=== PATIENT | female | born 1985 | race Caucasian/White ===

== ENCOUNTER 2019-03-30 17:34 | Emergency (ER) | payer OTHER ==
[2019-03-30 17:52] VITALS: BP 131/85
--- NOTE | 2019-03-30 17:59 | UC ---
Skin Complaint HPI - HPI Summary HPI Summary: awoke with an itchy area on left foot and right knee---patient is concerned as area started itchy but is now firm and painful, red, and hot to touch no streaking - History of Current Complaint Chief Complaint: UCSkin Time Seen by Provider: 03/30/19 17:45 Stated Complaint: RASH Hx Obtained From: Patient Hx Last Menstrual Period: iud in place ?: No Onset/Duration: Sudden Onset, Lasting Days - 1 Skin Exposure Onset/Duration: Hours Ago Timing: Constant Pain Intensity: 6 Pain Scale Used: 0-10 Numeric Location: Discrete Character: Swelling, Pain, Redness Aggravating Factor(s): Nothing Alleviating Factor(s): Nothing Associated Signs & Symptoms: Positive: Negative Related History: Insect Bite/Sting - possible - Allergy/Home Medications Allergies/Adverse Reactions: Allergies Allergy/AdvReac Type Severity Reaction Status Date / Time No Known Allergies Allergy Verified 03/30/19 17:49 Home Medications: Home Medications ALPRAZolam [Xanax] 1 tab PO DAILY PRN 03/30/19 [History Confirmed 03/30/19] Levonorgestrel (Iud) [Mirena IUD] 1 unit INTRAUTERI ONCE 03/30/19 [History Confirmed 03/30/19] Loratadine/Pseudoephedrine [Claritin-D 24 Hour Tablet] 1 tab PO ONCE PRN [History Confirmed 03/30/19] Sertraline HCl [Zoloft] 1 tab PO DAILY 03/30/19 [History Confirmed 03/30/19] PMH/Surg Hx/FS Hx/Imm Hx Previously Healthy: No Psychological History: Anxiety - Surgical History Surgical History: Yes Surgery Procedure, Year, and Place: - Social History Occupation: Employed Full-time Lives: With Family Alcohol Use: Occasionally Substance Use Type: None Smoking Status (MU): Light Every Day Tobacco Smoker Type: eCigaremari Review of Systems All Other Systems Reviewed And Are Negative: Yes Constitutional: Positive: Negative Skin: Positive: Other - 15 cm diameter erythema right knee and 10 cm erythema left foot Eyes: Positive: Negative ENT: Positive: Negative Respiratory: Positive: Negative Cardiovascular: Positive: Negative Gastrointestinal: Positive: Negative Genitourinary: Positive: Negative Motor: Positive: Negative Neurovascular: Positive: Negative Musculoskeletal: Positive: Negative Neurological: Positive: Negative Psychological: Positive: Negative Is Patient Immunocompromised?: No Physical Exam Triage Information Reviewed: Yes Appearance: Well-Appearing, No Pain Distress, Well-Nourished Vital Signs: Initial Vital Signs Temp 99.2 F 03/30/19 17:42 Pulse 95 03/30/19 17:42 Resp 18 03/30/19 17:42 BP 131/85 03/30/19 17:42 Pulse Ox 100 03/30/19 17:42 Vital Signs Reviewed: Yes Eye Exam: Normal Eyes: Positive: Conjunctiva Clear ENT Exam: Normal ENT: Positive: Normal ENT inspection, Hearing grossly normal. Negative: Trismus , Muffled voice, Hoarse voice Dental Exam: Normal Neck exam: Normal Neck: Positive: Supple, Nontender Respiratory Exam: Normal Respiratory: Positive: Chest non-tender, No respiratory distress, No accessory muscle use Cardiovascular Exam: Normal Cardiovascular: Positive: RRR, Pulses Normal, Brisk Capillary Refill Musculoskeletal Exam: Normal Musculoskeletal: Positive: Strength Intact, ROM Intact, No Edema Neurological Exam: Normal Neurological: Positive: Alert, Muscle Tone Normal Psychological Exam: Normal Skin: Positive: Other - 15 cm erthemic area right knee no streaking and 10 cm erythema left foot no streaking Course/Dx - Course Course Of Treatment: benadryl. keflex, cool compress for itch---observe for increasing erythema or streaking follow with pcp prn - Diagnoses Provider Diagnosis: Local reaction to insect sting, Cellulitis Discharge ED - Sign-Out/Discharge Documenting (check all that apply): Patient Departure All imaging exams completed and their final reports reviewed: No Studies - Discharge Plan Condition: Stable Disposition: HOME Prescriptions: Cephalexin CAP* [Keflex CAP*] 500 mg PO QID #19 cap Patient Education Materials: Diphenhydramine (By mouth), Cellulitis (ED), Insect Bite or Sting (ED), Ice Pack Application (ED) Referrals: Yanely Daugherty MD [Primary Care Provider] - If Needed - Billing Disposition and Condition Condition: STABLE Disposition: Home
[2019-03-30] MEDS ORDERED: Cephalexin CAP* 500 MG PO ONE (18:07)
== END 2019-03-30 18:23 | disposition home or self-care (01) ==
LOC: UCEAST 17:34
DX: T63.481A Toxic effect of venom of other arthropod, accidental (unintentional), initial encounter (principal); L03.115 Cellulitis of right lower limb; F17.290 Nicotine dependence, other tobacco product, uncomplicated; F41.9 Anxiety disorder, unspecified; Z79.899 Other long term (current) drug therapy; Y92.9 Unspecified place or not applicable
CPT/HCPCS: 99212; A9270-GY; G0463

== ENCOUNTER 2019-04-25 08:36 | Emergency (ER) | payer OTHER ==
--- NOTE | 2019-04-25 09:07 | ED ---
Influenza-Like Illness - HPI Summary HPI Summary: The patient is a 33 y/o F presenting to [facility] with a chief complaint of flu- like symptoms for the last week. . She notes nausea, vomiting, and diarrhea for the first five days of the episode which have since resolved. Over the last two days, she reports development of intermittent fever of 101F (last yesterday), chills, productive cough, sinus and chest congestion, and body aches. Symptoms currently rated 4/10 in severity. She denies any sore throat or abdominal pain. 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 She has not taken any decongestants. 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 No PMHx. Former smoker, occasional EtOH, no substance use. Medications reviewed. Allergies noted. - History of Current Complaint Chief Complaint: EDFluSymptoms Time Seen by Provider: 04/25/19 08:55 Hx Obtained From: Patient Onset/Duration: Lasting Days - one week, Still Present Severity: Moderate Associated Signs & Symptoms: Fever, Myalgia, Cough, Nasal Congestion, Vomiting - resolved, Diarrhea - resolved Related Hx: Possible Flu/Infectious Exposure - Allergy/Home Medications Allergies/Adverse Reactions: Allergies Allergy/AdvReac Type Severity Reaction Status Date / Time No Known Allergies Allergy Verified 04/25/19 08:43 Home Medications: Home Medications ALPRAZolam TAB* [Xanax TAB*] 0.5 mg PO BEDTIME PRN 04/25/19 [History Confirmed 04/25/19] Ibuprofen TAB* [Advil TAB*] 200 mg PO Q6H PRN 04/25/19 [History Confirmed ] guaiFENesin [Mucinex] 1,200 mg PO DAILY PRN 04/25/19 [History Confirmed 04/25/19 ] PMH/Surg Hx/FS Hx/Imm Hx Endocrine/Hematology History: Denies: Hx Diabetes Cardiovascular History: Denies: Hx Congestive Heart Failure, Hx Hypertension History: Denies: Hx Renal Disease - Surgical History Surgical History: Yes Surgery Procedure, Year, and Place: Infectious Disease History: No Infectious Disease History: Denies: Traveled Outside the [place] in Last 30 Days - Family History Known Family History: Negative: Renal Disease - Social History Alcohol Use: Occasionally Hx Substance Use: No Substance Use Type: Reports: None Hx Tobacco Use: Yes Smoking Status (MU): Former Smoker Type: [place] Review of Systems Positive: Fever - intermittent, 101F, Chills Positive: Other - nasal congestion. Negative: Sore Throat Positive: Cough - productive, Other - chest congestion Positive: Vomiting - resolved, Diarrhea - resolved, Nausea - resolved. Negative : Abdominal Pain Positive: Myalgia - body aches All Other Systems Reviewed And Are Negative: Yes Physical Exam - Summary Physical Exam Summary: Constitutional: Well-developed, Well-nourished, Alert. (-) Distressed Skin: Warm, Dry HENT: Normocephalic; Atraumatic Eyes: Conjunctiva normal Neck: Musculoskeletal ROM normal neck. (-) JVD, (-) Stridor, (-) Tracheal deviation Cardio: Rhythm regular, rate normal, Heart sounds normal; Intact distal pulses; Radial pulses are 2+ and symmetric. (-) Murmur Pulmonary/Chest wall: Effort normal. (-) Respiratory distress, (-) Wheezes, (-) Rales Abd: Soft, (-) tenderness, (-) Distension, (-) Guarding, (-) Rebound Musculoskeletal: (-) Edema Lymph: (-) Cervical adenopathy Neuro: Alert, Oriented x3 Psych: Mood and affect Normal Triage Information Reviewed: Yes Vital Signs On Initial Exam: Initial Vitals Temp Pulse Resp BP Pulse Ox 98.7 F 84 16 128/84 99 04/25/19 08:39 04/25/19 08:39 04/25/19 08:39 04/25/19 08:39 04/25/19 08:39 Vital Signs Reviewed: Yes Procedures - Sedation Patient Received Moderate/Deep Sedation with Procedure: No Diagnostics - Vital Signs Vital Signs Temp Pulse Resp BP Pulse Ox 04/25/19 08:39 98.7 F 84 16 128/84 99 - Laboratory Lab Statement: Any lab studies that have been ordered have been reviewed, and results considered in the medical decision making process. - Radiology CXR Radiology Interpretation Completed By: Radiologist Summary of Radiographic Findings: Impression: No evidence for active cardiopulmonary disease. ED physician has reviewed this report. Re-Evaluation - Re-Evaluation First Eval Re-Evaluation Time: 10:03 Comment: Discussed results and plan for discharge. Flu Symptom Course/Dx - Course Course Of Treatment: Patient is here with viral type symptoms. Patient initially had GI symptoms which are since resolved. Now, patient has sinus congestion and cough. Patient had chest x-ray which showed no pneumonia. Patient is out of the treatment window for influenza so a test was not ordered. Patient was educated on sinusitis management and discharge with PCP follow-up. - Diagnoses Provider Diagnoses: Sinus congestion Discharge ED - Sign-Out/Discharge Documenting (check all that apply): Patient Departure - Patient will be discharged home. - Discharge Plan Condition: Stable Disposition: HOME Patient Education Materials: Sinusitis (ED) Referrals: Yanely Daugherty MD [Primary Care Provider] - 3 Days Additional Instructions: Go buy a Neti pot for your sinuses. Also purchased [id number] decongestants. Stay hydrates with Pedialyte. Drink warm tea. Take Motrin for pain and swelling. Come back to the emergency department for any trouble breathing or any other concerning symptoms. - Billing Disposition and Condition Condition: STABLE Disposition: Home - Attestation Statements Document Initiated by Kendra: Yes Documenting Scribe: Darlyn Preston Provider For Whom Kendra is Documenting (Include Credential): Dr. Drew Lopes MD Scribe Attestation: Darlyn Martinez scribed for Dr. Drew Lopes MD on 04/25/19 at 1603. Scribe Documentation Reviewed: Yes Provider Attestation: The documentation as recorded by the Darlyn gibbs accurately reflects the service I personally performed and the decisions made by me, Dr. Drew Lopes MD Status of Scribe Document: Viewed
[2019-04-25 12:08] VITALS: BP 117/74
== END 2019-04-25 11:40 | disposition home or self-care (01) ==
LOC: ED 08:36
DX: R09.81 Nasal congestion (principal); Z87.891 Personal history of nicotine dependence; R05 Cough; R50.9 Fever, unspecified
CPT/HCPCS: 71046; 99282